=== PATIENT | male | born 1950 | race Caucasian/White ===

== ENCOUNTER → 2021-11-06 13:37 | Outpatient (CLI) | payer OTHER, SELFPAY ==
--- NOTE | 2021-11-06 13:41 | DI.RAD.S_ITS ---
PROCEDURE: XR KUB INDICATIONS: Kidney stone TECHNIQUE: One view of the abdomen acquired. COMPARISON: None. FINDINGS: Surgical changes and devices: Right upper quadrant surgical clips, compatible with cholecystectomy. Bowel: Nonspecific bowel gas pattern. Soft tissues: 7 mm calcific density projecting over the right sacrum, which may reflect a ureteral calculus or phlebolith. Additional pelvic calcifications are seen, compatible with phleboliths. Visualized solid organ contours appear normal in size. Bones: No suspicious bony lesions. Multifocal degenerative change. IMPRESSION: 7 mm right ureteral calculus versus phlebolith. Dictated by: Gustavo Love M.D. on 11/06/2021 at 14:42 Approved by: Gustavo Love M.D. on 11/06/2021 at 14:44
== END ==
PROVIDERS: Referring Provider Urology; Visit Provider Urology
DX: N20.1 Calculus of ureter (principal); N42.9 Disorder of prostate, unspecified; K40.90 Unilateral inguinal hernia, without obstruction or gangrene, not specified as recurrent; N40.1 Benign prostatic hyperplasia with lower urinary tract symptoms; N13.8 Other obstructive and reflux uropathy; Z87.442 Personal history of urinary calculi
CPT/HCPCS: 51798; 74018; 81002; 99214

== ENCOUNTER → 2021-11-15 12:06 | Outpatient (CLI) | payer OTHER, SELFPAY ==
--- NOTE | 2021-11-15 12:14 | DI.RAD.S_ITS ---
PROCEDURE: XR KUB INDICATIONS: ureteral calculus TECHNIQUE: One view of the abdomen acquired. COMPARISON: [facility], , XR KUB, 11/06/2021, 13:35. FINDINGS: Surgical changes and devices: None. Bowel: Nonspecific bowel gas pattern. Soft tissues: Redemonstrated 7 mm calculus projecting over the right sacrum, which may reflect a ureteral calculus versus phleboliths. Visualized solid organ contours appear normal in size. Bones: No suspicious bony lesions. Multifocal degenerative change. IMPRESSION: No significant interval change. Dictated by: Gustavo Love M.D. on 11/15/2021 at 14:26 Approved by: Gustavo Love M.D. on 11/15/2021 at 14:27
[2021-11-15 14:30] LABS: Prostate Specific Antigen Scrn 0.971 ng/mL (0.1-4.0)
== END ==
PROVIDERS: Referring Provider Urology; Visit Provider Urology
DX: Z12.5 Encounter for screening for malignant neoplasm of prostate (principal); N20.1 Calculus of ureter
CPT/HCPCS: 36415; 74018; G0103

== ENCOUNTER → 2021-12-06 15:30 | Outpatient (CLI) | payer OTHER, SELFPAY ==
--- NOTE | 2021-12-06 15:32 | DI.RAD.S_ITS ---
PROCEDURE: XR KUB INDICATIONS: kidney stones TECHNIQUE: One view of the abdomen acquired. COMPARISON: [facility], CR, XR KUB, 11/15/2021, 12:07. [facility], CR, XR KUB, 11/06/2021, 13:35. FINDINGS: Surgical changes and devices: Cholecystectomy clips. Bowel: Bowel gas pattern is normal. Soft tissues: Calcifications in the pelvis are unchanged. No stones in the kidneys identified. No suspicious abdominal calcifications. Bones: No suspicious bony lesions. IMPRESSION: Calcifications in the pelvis are unchanged. These could be due to phleboliths or kidney stones. Recommend further evaluation with CT KUB. Dictated by: Darrel Alfonso M.D. on 12/06/2021 at 16:53 Approved by: Darrel Alfonso M.D. on 12/06/2021 at 16:55
== END ==
PROVIDERS: Referring Provider Urology; Visit Provider Urology
DX: N20.1 Calculus of ureter (principal)
CPT/HCPCS: 74018

== ENCOUNTER → 2021-12-30 15:14 | Outpatient (CLI) | payer OTHER, SELFPAY ==
--- NOTE | 2021-12-30 15:16 | DI.RAD.S_ITS ---
PROCEDURE: XR KUB INDICATIONS: Kidney stone TECHNIQUE: One view of the abdomen acquired. COMPARISON: [facility], , XR KUB, 12/06/2021, 15:22. FINDINGS: Surgical changes and devices: Cholecystectomy clips Bowel: Bowel gas pattern is normal. Soft tissues: No suspicious abdominal calcifications. Visualized solid organ contours appear normal in size. No radiopaque renal calculi are identified on the current films. Multiple pelvic calcifications are noted. Bones: No suspicious bony lesions. IMPRESSION: Unchanged findings. Dictated by: Chi Dahl M.D. on 12/30/2021 at 17:17 Approved by: Chi Dahl M.D. on 12/30/2021 at 17:19
== END ==
PROVIDERS: Referring Provider Urology; Visit Provider Urology
DX: N20.9 Urinary calculus, unspecified (principal); Z87.442 Personal history of urinary calculi
CPT/HCPCS: 74018

== ENCOUNTER → 2022-01-13 14:52 | Outpatient (CLI) | payer OTHER, SELFPAY ==
--- NOTE | 2022-01-13 14:54 | DI.RAD.S_ITS ---
PROCEDURE: XR KUB INDICATIONS: calculus of ureter TECHNIQUE: One view of the abdomen acquired. COMPARISON: [facility], , XR KUB, 12/30/2021, 15:17. FINDINGS: Surgical changes and devices: Cholecystectomy clips are present. Bowel: Bowel gas pattern is normal. Soft tissues: No suspicious abdominal calcifications. Visualized solid organ contours appear normal in size. Calcifications are noted within the pelvis, unchanged compared to prior exam. Bones: No suspicious bony lesions. IMPRESSION: Unchanged pelvic calcifications suspected to be phleboliths, unchanged. Dictated by: Oralia Lux M.D. on 01/13/2022 at 16:17 Approved by: Oralia Lux M.D. on 01/13/2022 at 16:20
== END ==
PROVIDERS: Referring Provider Urology; Visit Provider Urology
DX: N20.1 Calculus of ureter (principal)
CPT/HCPCS: 74018

== ENCOUNTER → 2022-01-22 10:20 | Outpatient (CLI) | payer OTHER, SELFPAY ==
[2022-01-22 10:57] LABS: COVID19 -Nasal RAPID Negative (Negative)
== END ==
PROVIDERS: Visit Provider Urology
DX: Z20.822 Contact with and (suspected) exposure to COVID-19 (principal)
CPT/HCPCS: 87635; C9803

== ENCOUNTER 2022-01-24 11:41 | Day surgery (SDC) | payer OTHER, SELFPAY ==
[2022-01-21 08:18] VITALS: BMI 34.0
--- NOTE | 2022-01-24 | DI.RAD.S_ITS ---
PROCEDURE: XR ABDOMEN 1V INDICATIONS: RIGHT STENT TECHNIQUE: Nondiagnostic intraoperative fluoroscopic image of the right mid abdomen at the level of the kidney. COMPARISON: None. FINDINGS: Nondiagnostic intraoperative fluoroscopic image of the right mid abdomen at the level of the right kidney demonstrates a coiled double-J ureteral stent. IMPRESSION: Right double-J ureteral stent in appropriate position. Dictated by: Yuniel Dumont M.D. on 01/24/2022 at 15:49 Approved by: Yuniel Dumont M.D. on 01/24/2022 at 15:50
[2022-01-24 12:00] VITALS: BP 121/87; PULSE 86; RESP 16; TEMP 36.2; O2SAT 98; BMI 33.9
[2022-01-24] MEDS: LACTATED RINGERS 1,000 ML 42 ML IV (12:17)
--- NOTE | 2022-01-24 13:05 | PM.PREOP ---
Pre-operative Note COVID-19 Result date/Date tested (Pos, Neg/Pending): 01/22/22 Criteria for continued procedure: Delay expected to result in less-positive ultimate med/surg outcome and Non-surgical alternatives not available or appropriate per current SOC Interval Note History & Physical reviewed/Exam performed by Physician: Yes Changes to H&P: No
[2022-01-24] MEDS: CEFAZOLIN 2 GM/20 ML SYRINGE IV (13:50)
--- NOTE | 2022-01-24 14:25 | SUR.OPER ---
Lithotomy on padded OR bed, head on pillow, right arm secured on padded arm board at <90 degrees abduction, left arm tucked. Legs secured in padded yellow fins stirrups.
--- NOTE | 2022-01-24 14:45 | P.OP_ITS ---
Procedure & Clinicians Procedure: Right rigid ureteroscopy with laser lithotripsy, basket extraction of stone fragments and right ureteral stent placement. Same procedure as scheduled: Yes Indications: This 71-year-old male comes for the above procedure having attempted to pass a right ureteral stone. This stone has failed to progress and the see presents for definitive treatment. Surgeon: Bernabe Sheldon Click Yes if Unassisted: Yes Anesthesia Type: General Operative Notes Findings: Findings: Urethral meatus and urethra are normal. Prostate shows moderate obstructive character with a small to median sized median lobe. Ureteral orifices in normal position with clear efflux. Bladder mucosa is normal there is moderate trabeculation. Stone is noted in the distal ureter just below the level of the vessels. It is fragmented and all large fragments were removed. The 7 [place] multilink stent was left in good position in the right collecting system no string was left in place. Closure Type: not applicable Specimen(s): other (Right ureteral stone fragments) Applied: other (7 [place] multi length stent with no string left in the right ureteral collecting system) Estimated Blood Loss (mL): 0 Blood products transfused: none Procedure in detail: Procedure in detail: After informed consent was obtained, the patient was identified, and brought to the operating room where he was placed in a supine position on the table. The patient then had anesthesia induced and maintained. Ensuring an adequate level of anesthesia the patient was transitioned to the lithotomy position where he was prepped, draped, prepared for transurethral procedure. After time-out, prepping draping ensuring an adequate level of anesthesia 21 [place] cystoscope was passed through the urethra prostate into the bladder under direct vision cystoscopy was performed with the 30 and 70 degree lens. The right ureteral orifice was identified and a guidewire passed up and into the collecting system under fluoroscopic visualization. Scope was backed out and this wire was reserved as a safety wire. The scope was reinserted 2nd wire passed up and into the collecting system. The cystoscope was backed out and a is semi rigid ureteral scope was passed in a coaxial fashion over the working wire to the level of the stone. The wire was removed laser fiber was in serted and laser energy delivered to the stone fragmenting it into passable size fragments. Nitinol basket was then inserted and exchanged for the laser fiber after the laser been placed on standby. Hand with the basket the stones were grasped and then dropped within the bladder reinserting the scope into the ureter under direct vision. This was done until all fragments were collected. Again the scope was inserted the ureter visualized from the level of the vessels down and no further fragments were noted. The ureteral scope was then removed. And the wire backloaded through a cystoscope which was then put in place. The stent was passed over the wire in a coaxial fashion position renal pelvis under fluoroscopic visualization in the bladder under direct vision the grasping forceps was inserted and the stent grasped after the wired been removed and the nylon harness was removed. The fragments were then evacuated from the bladder and collected to be sent to pathology for composition analysis. With these things done the bladder was drained the scope was removed and the patient was awakened having tolerated the procedure well. He was then taken to the postanesthesia care unit for recovery to be discharged to home. There Complications: none Post-operative Condition: stable Disposition: PACU Plan for aftercare: Patient to follow-up in my office in approximately 10 days for cystoscopy and likely stent removal after verification of all fragments passed via KUB
[2022-01-24 14:51] VITALS: BP 142/89; PULSE 90; RESP 12; TEMP 36.2; O2SAT 95
[2022-01-24 14:56] VITALS: BP 128/83; PULSE 77; RESP 11; O2SAT 96
[2022-01-24 15:04] VITALS: BP 117/72; PULSE 80; RESP 12; TEMP 36.5; O2SAT 96
[2022-01-24 15:08] VITALS: BP 100/64; PULSE 76; RESP 14; TEMP 36.5; O2SAT 96
[2022-01-24 15:18] VITALS: BP 117/75; PULSE 81; RESP 20; TEMP 36.5; O2SAT 98
[2022-01-29 18:36] LABS: Ca oxalate monohydr 100 % (.); Size 3x3 mm (.)
== END 2022-01-24 15:27 | disposition home or self-care (01) ==
PROVIDERS: Referring Provider Urology; Visit Provider Urology
PROC: (CPT 52356; principal; 2022-01-24 13:15)
DX: N20.1 Calculus of ureter (principal); N40.1 Benign prostatic hyperplasia with lower urinary tract symptoms; N13.8 Other obstructive and reflux uropathy; E11.9 Type 2 diabetes mellitus without complications; Z79.84 Long term (current) use of oral hypoglycemic drugs
CPT/HCPCS: 52356; 74018; 76000; 82365; 82962; J0690; J1100; J2250; J2405; J2704; J3010

== ENCOUNTER → 2022-02-07 16:12 | Outpatient (CLI) | payer OTHER, SELFPAY ==
--- NOTE | 2022-02-07 16:16 | DI.RAD.S_ITS ---
PROCEDURE: XR KUB INDICATIONS: ureter calculus TECHNIQUE: One view of the abdomen acquired. COMPARISON: [facility], , XR KUB, 01/13/2022, 14:43. FINDINGS: Surgical changes and devices: Interval placement of right ureteral stent. Calcific density projecting over the expected course of the distal right ureter is not identified in the current study compatible with interval passage. Multiple pelvic phleboliths are stable compared to prior exam. Bowel: Bowel gas pattern is normal. Soft tissues: No suspicious abdominal calcifications. Visualized solid organ contours appear normal in size. Bones: No suspicious bony lesions. IMPRESSION: Right ureteral stone not identified compatible with interval passage. Dictated by: Nhi Minaya MD, PhD on 02/07/2022 at 17:06 Approved by: Nhi Minaya MD, PhD on 02/07/2022 at 17:07
== END ==
PROVIDERS: Referring Provider Urology; Visit Provider Urology
DX: N20.1 Calculus of ureter (principal)
CPT/HCPCS: 74018

== ENCOUNTER → 2022-03-06 08:29 | Outpatient (CLI) | payer OTHER, SELFPAY ==
[2022-03-06 11:17] LABS: Calcium 9.3 mg/dL (8.4-10.2); Uric Acid 5.9 mg/dL (3.5-8.5)
[2022-03-07 05:47] LABS: Parathyroid Hormone Int 24 pg/mL (15-65)
== END ==
PROVIDERS: Referring Provider Urology; Visit Provider Urology
DX: N20.1 Calculus of ureter (principal)
CPT/HCPCS: 36415; 82310; 83970; 84550

== ENCOUNTER 2023-01-10 15:11 | Emergency (ER) | payer OTHER, SELFPAY ==
[2023-01-10 15:16] VITALS: BP 137/88; PULSE 75; RESP 18; TEMP 36.1; O2SAT 96; BMI 36.8
--- NOTE | 2023-01-10 15:26 | PC.NURSE ---
states the right is slightly blurry.
[2023-01-10 17:42] VITALS: BP 110/75; PULSE 81; O2SAT 96
[2023-01-10] MEDS: FLUORESCEIN 1 MG STRIP EYE-RIGHT (17:43)
--- NOTE | 2023-01-10 17:46 | ED.EYEPROB ---
HPI - Eye Problem <Maude Wong PA-C - Last Filed: 01/10/23 20:20> General Chief complaint: Eye Problems Stated complaint: Aki blurry vison, blood shot, 1h Time Seen by Provider: 01/10/23 17:31 Source: patient Mode of arrival: Family Vehicle History of Present Illness HPI Narrative: This is a 72-year-old male who presents with concern for right eye injury sustained today this afternoon. Patient states he was closing the lid on the barbecue wrapping a bungee cord around it he had put the bungee cord underneath and was pulling it up behind the barbecue to attach it when he lost was hold of it and it snapped back towards him coming underneath the barbecue and swinging up into his right eye. Patient states that the metallic end of the bungee cord hit his eye he is unsure if he closed his eye prior to hitting. He states he immediately had pain and blurry vision although notes that his blurry vision has improved somewhat and he actually feels like he can see pretty normally at this point. He says he is a very mild headache and when the injury happened it caused him to fall backwards and he did land on the deck. He thinks he may have hit his head but did not lose consciousness, his heard him fall and was there immediately. He states he does not wear contacts or glasses, does use reading glasses, he has some pain around his eye does not feel it is worse with moving his eye. He denies double vision, severe headache, persistent blurred vision midline neck pain, numbness or tingling of extremities, loss of consciousness, nausea, vomiting or any other symptoms. Related Data Home Medications Medication Instructions Recorded Confirmed atorvastatin 10 mg tablet 10 mg PO DAILY 11/06/21 10/23/22 metformin 500 mg tablet 1,000 mg PO BID 01/01/22 10/23/22 empagliflozin [Jardiance] PO DAILY 10/23/22 10/23/22 levothyroxine 150 mcg tablet 150 mcg PO DAILY 10/23/22 10/23/22 pembrolizumab [Keytruda] IV .6wks 10/23/22 10/23/22 Previous Rx's Medication Instructions Recorded tamsulosin 0.4 mg capsule 0.8 mg PO BEDTIME #60 caps 11/26/22 obqxgqlu-mixkutukp-bojqidow 3.5 2 drp EYE-RIGHT Q6H corneal 01/10/23 mg/mL-10,000 unit/mL-0.1% eye drops abrasion/eye trauma 6 days #5 mL Allergies Allergy/AdvReac Type Severity Reaction Status Date / Time No Known Drug Allergies Allergy Verified 01/10/23 15:22 Review of Systems <Maude Wong PA-C - Last Filed: 01/10/23 20:20> Review of Systems Narrative: See HPI Patient History <Maude Wong PA-C - Last Filed: 01/10/23 20:20> Medical History BPH with obstruction/lower urinary tract symptoms Calcium oxalate monohydrate kidney stones Diabetes FH: cholecystectomy History of kidney stones HLD (hyperlipidemia) Kidney stones Left inguinal hernia Melanoma Osteoarthritis Right ureteral calculus Surgical History History of knee replacement Hx of cholecystectomy (2011) Social History marital status: household members: spouse Smoking Status: Never smoker alcohol intake: current Type(s) of exercise: walking frequency: daily Smoking Status: Never smoker alcohol intake frequency: a few times a week Substance Use Type: does not use Exam <Maude Wong PA-C - Last Filed: 01/10/23 20:20> Narrative Exam Narrative: GENERAL: 72 year old patient appears stated age. Well-developed patient, in mild distress. HEAD: Atraumatic. Normocephalic. EYES/FACE: Pupils equal round and reactive. Extraocular motions intact. No scleral icterus. No drainage, the right eye is significantly erythematous with subconjunctival hematoma covering the entire scleral area of the right eye with mild edema and swelling between 6:00 p.m. and 9:00 p.m. there is no hyphema noted, pupil is round and reactive. There is mild bluish bruising forming under the patient's eye the medial aspect nasal bones are stable, patient does have some tenderness with palpation of the orbit midline upper, however orbit bones feels stable, zygoma stable After instilling tetracaine, exam of the right eye with fluorescein does reveal a medial corneal abrasion that is mild at approximately the 3 o'clock position that is not over the iris or pupil. Additionally intra-ocular pressures are assessed and found to be equal bilaterally at 7 ENT: Nose without bleeding, purulent drainage. Airway patent. bite is normal NECK: Trachea midline. Non tender. No midline spinous process tenderness deformities or step-offs, patient has normal range of motion of the neck pain-free. CARDIOVASCULAR: Regular rate and rhythm without murmurs, gallops, or rubs. RESPIRATORY: Clear to auscultation. Breath sounds equal bilaterally. No wheezes, rales, or rhonchi. EXTREMITIES: No edema or joint tenderness. BACK: Nontender without deformity or crepitance. No flank tenderness. NEURO: AOx3. SKIN: No rash or erythema of visible areas Initial Vital Signs Initial Vital Signs: Vital Signs Temperature 97 F L 01/10/23 15:16 Pulse Rate 75 01/10/23 15:16 Respiratory Rate 18 01/10/23 15:16 Blood Pressure 137/88 01/10/23 15:16 Pulse Oximetry 96 01/10/23 15:16 Oxygen Delivery Method Room Air 01/10/23 15:16 <Darin Gomez DO - Last Filed: 01/10/23 21:15> Initial Vital Signs Initial Vital Signs: Vital Signs Temperature 97 F L 01/10/23 15:16 Pulse Rate 75 01/10/23 15:16 Respiratory Rate 18 01/10/23 15:16 Blood Pressure 137/88 01/10/23 15:16 Pulse Oximetry 96 01/10/23 15:16 Oxygen Delivery Method Room Air 01/10/23 15:16 Course <Maude Wong PA-C - Last Filed: 01/10/23 20:20> Course Course Narrative: Did perform initial exam on this patient with Dr. Saenz, attending physician present and doing initial exam, after discussion she does order a CT facial bones for further evaluation. Orders Ordered: ED Orders 01/10/23 17:54 CT facial bones wo con Stat 01/10/23 18:14 CT head/brain wo con Stat Discontinued Medications Diphtheria/Tetanus/Acell Pertussis (Tet,Diph,Pertuss(Acell),Vac/Pf 0.5 Ml Syringe) 0.5 ml IM .ONCE ONE Stop: 01/10/23 18:17 Last Admin: 01/10/23 20:16 Dose: Not Given Documented By: Fluorescein Sodium (Fluorescein 1 Mg Strip) 1 mg EYE-RIGHT NOW ONE Stop: 01/10/23 17:37 Last Admin: 01/10/23 17:43 Dose: 1 mg Documented By: SB Proparacaine HCl (Proparacaine 0.5% Ophth Venessa) 1 drops EYE-RIGHT PRN PRN PRN Reason: eye pain Last Admin: 01/10/23 18:33 Dose: 1 drop Documented By: SB Vital Signs Vital signs: Vital Signs - 8 hr 01/10/23 15:16 01/10/23 17:42 01/10/23 20:19 Temperature 97 F L Pulse Rate 75 81 72 Respiratory Rate 18 16 Blood Pressure 137/88 110/75 137/84 Pulse Oximetry 96 96 97 Oxygen Delivery Method Room Air Room Air Room Air <Darin Gomez DO - Last Filed: 01/10/23 21:15> Orders Ordered: ED Orders 01/10/23 17:54 CT facial bones wo con Stat 01/10/23 18:14 CT head/brain wo con Stat Discontinued Medications Diphtheria/Tetanus/Acell Pertussis (Tet,Diph,Pertuss(Acell),Vac/Pf 0.5 Ml Syringe) 0.5 ml IM .ONCE ONE Stop: 01/10/23 18:17 Last Admin: 01/10/23 20:16 Dose: Not Given Documented By: Fluorescein Sodium (Fluorescein 1 Mg Strip) 1 mg EYE-RIGHT NOW ONE Stop: 01/10/23 17:37 Last Admin: 01/10/23 17:43 Dose: 1 mg Documented By: SB Proparacaine HCl (Proparacaine 0.5% Ophth Venessa) 1 drops EYE-RIGHT PRN PRN PRN Reason: eye pain Last Admin: 01/10/23 18:33 Dose: 1 drop Documented By: SB Vital Signs Vital signs: Vital Signs - 8 hr 01/10/23 15:16 01/10/23 17:42 01/10/23 20:19 Temperature 97 F L Pulse Rate 75 81 72 Respiratory Rate 18 16 Blood Pressure 137/88 110/75 137/84 Pulse Oximetry 96 96 97 Oxygen Delivery Method Room Air Room Air Room Air MDM - Eye Problem <Maude Wong PA-C - Last Filed: 01/10/23 20:20> Differential Diagnosis Differential diagnosis: Likely corneal abrasion, subconjunctival hemorrhage, ruptured globe and other (Traumatic injury to eye) Medical Records Attestation: I reviewed the patient's medical records. Imaging Data CT scan - head: My Impression: Agree with Radiology interpretation Radiologist's Impression: [address] [address] [address] Scan Report Signed Patient: Carlos Chavis MR#: [id number] : 1950 Acct:[id number] Age/Sex: 72 / M Date of Service: 01/10/23 Loc: ED Accession Number: [id number] ?? Procedure: CT head/brain wo con Ordering Provider: Maude Wong P.A-C PROCEDURE:? CT HEAD/BRAIN WO CON ? INDICATIONS:? fall, head injury ? TECHNIQUE:? Noncontrast 4.5 mm thick angled axial sections acquired from the foramen magnum to the vertex, with coronal and sagittal reformats.? For radiation dose reduction, the following was used:? automated exposure control, adjustment of mA and/or kV according to patient size.? ? COMPARISON:? None. ? FINDINGS:? Image quality:? Excellent.? ? CSF spaces:? Basal cisterns are patent.? No extra-axial fluid collections.? Ventricles are normal in size and shape.? ? Brain:? No midline shift.? No intracranial masses or hemorrhage.? Torres-white matter interface is normal.? Age-appropriate cerebral cortical volume loss.? Age-appropriate bilateral white matter hypodensities consistent with chronic small vessel ischemic changes. ? Skull and face:? Calvarium and visualized facial bones are intact, without suspicious lesions.? ? Sinuses:? Visualized sinuses and mastoids are clear.? ? IMPRESSION:? ? 1. No CT evidence of acute intracranial trauma. ? 2. No significant soft tissue injury or underlying fracture. ? 3. Age-appropriate cerebral cortical volume loss and chronic microvascular ischemic changes. ? ? ? Dictated by: Alissa Milner M.D. on 01/10/2023 at 19:15 ? ? Approved by: Alissa Milner M.D. on 01/10/2023 at 19:18?? CT facial bones: My Impression: Agree with Radiology interpretation Radiologist's Impression: [address] [address] [address] Scan Report Signed Patient: Carlos Chavis MR#: [id number] : 1950 Acct:[id number] Age/Sex: 72 / M Date of Service: 01/10/23 Loc: ED Accession Number: [id number] ?? Procedure: CT facial bones wo con Ordering Provider: Alysia Saenz D.O. PROCEDURE:? CT FACIAL BONES WO CON ? INDICATIONS:? right eye trauma ? TECHNIQUE:? Noncontrast 2.5 mm thick axial images acquired from the mandible through the frontal sinuses, with coronal and sagittal reformatting.? For radiation dose reduction, the following was used:? automated exposure control, adjustment of mA and/or kV according to patient size.? ? COMPARISON:? None. ? FINDINGS:? Image quality:? Excellent.? ? Bones and teeth:? Impacted and minimally displaced bilateral nasal bone fractures near the tip.? The nasal septum appears intact.? No associated hematoma.? Orbital rims and orbital floors appear intact.? Maxillary sinus jacobson, zygomatic arches, and pterygoid plates appear intact.? No mandibular fracture or TMJ dislocation.? Dentition appears normal with bilateral molar fillings.? Incidental note made degenerative changes at the atlantodental interval. ? Sinuses:? Paranasal sinuses are aerated, without fluid levels, mucosal thickening, or mucoceles.? Frontal sinuses are hypoplastic.? Mastoid air cells are aerated.? ? Soft tissues:? Minor right infraorbital soft tissue swelling.? The globe appears intact.? Retrobulbar soft tissues are symmetric.? No inflammatory changes.? No edema, masses, or fluid collections.? No enlarged lymph nodes.? No soft tissue lacerations or debris.? ? Vascular:? Visualized vascular structures appear normal in the absence of contrast.? Bony vascular foramina and canals are intact.? ? IMPRESSION:? ? 1. Mild right infraorbital soft tissue swelling without underlying fractures. ? 2. Minimally impacted bilateral nasal bone fractures of uncertain chronicity.? Correlate with point of tenderness.? ? ? Dictated by: Alissa Milner M.D. on 01/10/2023 at 19:42 ? ? Approved by: Alissa Milner M.D. on 01/10/2023 at 19:49?? Treatment and disposition Shared decision making:: Shared decision-making was used to determine this patient's plan of care in the emergency department and plan for outpatient follow up. [facility] Narrative Medical decision making narrative: This is a 72-year-old male who presents with concern for right eye pain redness after he was hit in the face by a swinging bungee cord that was under tension. After exam by attending physician and myself CT facial bones is ordered for further evaluation, eye exam including IOP which are equal bilaterally and fluorescein exam is unremarkable with exception of corneal abrasion noted on the medial aspect of the injured right eye. Patient does have a significant global subconjunctival hemorrhage affecting the entire scleral region with some mild edema noted inferolaterally on the affected eye however the pupil is round reactive and do not have concern for ruptured globe. Patient did initially have some mild blurred vision however this was resolving by time of exam and had an unremarkable visual acuity exam today. CT head noncontrast is also obtained in addition to CT facial bones given the patient did hit his head and is 72 years old reports no loss of consciousness and has had no severe headache or vomiting since the event. His C-spine is nontender and he has good active range of motion of the neck. Cervical spine CT is not obtained. Patient's imaging returns unremarkable he does have evidence of a nasal bone fracture bilaterally of unknown age per Radiology and patient does have a history of previous broken nose, his exam today is not consistent with this being a new injury. Patient also receives a prescription for neomycin polymyxin dexamethasone for antibiotic prophylaxis and Tdap is ordered during ED stay however the patient declined this even after discussion. Patient is advised regarding return precautions, follow-up plan discussed, all questions answered. Discharge Plan Departure Patient Disposition: Home Clinical Impression: Right eye trauma, Acute facial pain, Fall, Corneal abrasion, Subconjunctival hematoma Activity Restrictions/Additional Instructions: *You have been diagnosed with [a subconjunctival hemorrhage, corneal abrasion, eye trauma] *What to do: *Please continue to take your regular medications as directed. [X ] New medication prescriptions sent to your pharmacy: [Neomycin polymyxin dexamethasone] [ ] New medication written as a paper prescription [ ] No new medications given *Please follow up with your primary care provider in 2-3 days, call for an appointment. Let them know you were seen in the Emergency Department and that we ask that you be seen in follow up. We will electronically transmit a record of today's note if your PCP is in our system. CT scan today of your head and brain looked okay no evidence of bleeding there, you do have nasal bone fractures bilaterally seen on CT imaging, though this is consistent with your old/previous injury and not from your injury today. And on your eye exam today you did have corneal abrasion, I have prescribed topical eye drops for you with antibiotics in them and a steroid to help reduce inflammation and ensure you do not get infection. We also gave you an updated tetanus today in the emergency department. You can also take Tylenol and ibuprofen as needed for pain. It is very important that you do if you do have new or worsening symptoms such as blurry vision, eye pain, severe headache or other symptoms of concern you immediately seek re-evaluation. *If you do not have a primary care provider please contact the [facility] Resource line at [phone]. They will ask some questions about your medical history and help get you set up with a doctor in the community. *Return to Emergency Department if you should have any new, worsening or concerning symptoms, such as [fever greater than 101 F, shaking chills, worsening pain, persistent vomiting or other bothersome symptoms] Prescriptions: New neomycin-polymyxin B-dexameth 3.5mg/mL-10,000 unit/mL-0.1 % drops,suspension 2 drp EYE-RIGHT Q6H 6 Days Qty: 5 0RF No Action tamsulosin 0.4 mg capsule 0.8 mg PO BEDTIME Qty: 60 12RF atorvastatin 10 mg tablet 10 mg PO DAILY metformin 500 mg tablet 1,000 mg PO BID levothyroxine 150 mcg tablet 150 mcg PO DAILY empagliflozin [Jardiance] PO DAILY pembrolizumab [Keytruda] IV .6wks Stand Alone Forms: Patient Portal/API <Darin Gomez, - Last Filed: 01/10/23 21:15> Cosign ED Attending Cosignature Attestation: Dr Gomez Co-Sign Statement: I was available for consultation during this patient's emergency department visit. This chart is signed by myself for administrative purposes only. I did not have direct contact with this patient during this visit. They were seen independently by the APC.
--- NOTE | 2023-01-10 17:54 | DI.CT.S_ITS ---
PROCEDURE: CT FACIAL BONES WO CON INDICATIONS: right eye trauma TECHNIQUE: Noncontrast 2.5 mm thick axial images acquired from the mandible through the frontal sinuses, with coronal and sagittal reformatting. For radiation dose reduction, the following was used: automated exposure control, adjustment of mA and/or kV according to patient size. COMPARISON: None. FINDINGS: Image quality: Excellent. Bones and teeth: Impacted and minimally displaced bilateral nasal bone fractures near the tip. The nasal septum appears intact. No associated hematoma. Orbital rims and orbital floors appear intact. Maxillary sinus jacobson, zygomatic arches, and pterygoid plates appear intact. No mandibular fracture or TMJ dislocation. Dentition appears normal with bilateral molar fillings. Incidental note made degenerative changes at the atlantodental interval. Sinuses: Paranasal sinuses are aerated, without fluid levels, mucosal thickening, or mucoceles. Frontal sinuses are hypoplastic. Mastoid air cells are aerated. Soft tissues: Minor right infraorbital soft tissue swelling. The globe appears intact. Retrobulbar soft tissues are symmetric. No inflammatory changes. No edema, masses, or fluid collections. No enlarged lymph nodes. No soft tissue lacerations or debris. Vascular: Visualized vascular structures appear normal in the absence of contrast. Bony vascular foramina and canals are intact. IMPRESSION: 1. Mild right infraorbital soft tissue swelling without underlying fractures. 2. Minimally impacted bilateral nasal bone fractures of uncertain chronicity. Correlate with point of tenderness. Dictated by: Alissa Milner M.D. on 01/10/2023 at 19:42 Approved by: Alissa Milner M.D. on 01/10/2023 at 19:49
--- NOTE | 2023-01-10 18:14 | DI.CT.S_ITS ---
PROCEDURE: CT HEAD/BRAIN WO CON INDICATIONS: fall, head injury TECHNIQUE: Noncontrast 4.5 mm thick angled axial sections acquired from the foramen magnum to the vertex, with coronal and sagittal reformats. For radiation dose reduction, the following was used: automated exposure control, adjustment of mA and/or kV according to patient size. COMPARISON: None. FINDINGS: Image quality: Excellent. CSF spaces: Basal cisterns are patent. No extra-axial fluid collections. Ventricles are normal in size and shape. Brain: No midline shift. No intracranial masses or hemorrhage. Torres-white matter interface is normal. Age-appropriate cerebral cortical volume loss. Age-appropriate bilateral white matter hypodensities consistent with chronic small vessel ischemic changes. Skull and face: Calvarium and visualized facial bones are intact, without suspicious lesions. Sinuses: Visualized sinuses and mastoids are clear. IMPRESSION: 1. No CT evidence of acute intracranial trauma. 2. No significant soft tissue injury or underlying fracture. 3. Age-appropriate cerebral cortical volume loss and chronic microvascular ischemic changes. Dictated by: Alissa Milner M.D. on 01/10/2023 at 19:15 Approved by: Alissa Milner M.D. on 01/10/2023 at 19:18
[2023-01-10] MEDS: PROPARACAINE 0.5% OPHTH SOL 1 DROPS EYE-RIGHT (18:33)
[2023-01-10 20:19] VITALS: BP 137/84; PULSE 72; RESP 16; O2SAT 97
== END 2023-01-10 20:20 | disposition home or self-care (01) ==
PROVIDERS: Emergency Provider Student in an Organized Health Care Education/Training Program
DX: S05.01XA Injury of conjunctiva and corneal abrasion without foreign body, right eye, initial encounter (principal); H11.31 Conjunctival hemorrhage, right eye; S09.90XA Unspecified injury of head, initial encounter; W20.8XXA Other cause of strike by thrown, projected or falling object, initial encounter
CPT/HCPCS: 70450; 70486; 99282; 99284

== ENCOUNTER → 2023-04-23 15:40 | Outpatient (CLI) | payer OTHER, SELFPAY ==
--- NOTE | 2023-04-23 15:42 | DI.RAD.S_ITS ---
PROCEDURE: XR KUB INDICATIONS: Kidney stone TECHNIQUE: One view of the abdomen acquired. COMPARISON: [facility], , XR KUB, 02/07/2022, 16:20. FINDINGS: Surgical changes and devices: Cholecystectomy clips. Bowel: Bowel gas pattern is nonspecific with a few scattered air-fluid levels and paucity of bowel gas. Soft tissues: No suspicious abdominal calcifications. Visualized solid organ contours appear normal in size. Bones: No suspicious bony lesions. IMPRESSION: No renal stone by plain film radiograph. Dictated by: Nhi Minaya MD, PhD on 04/23/2023 at 16:41 Approved by: Nhi Minaya MD, PhD on 04/23/2023 at 16:41
== END ==
PROVIDERS: Referring Provider Urology; Visit Provider Urology
DX: Z87.442 Personal history of urinary calculi (principal)
CPT/HCPCS: 74018

== ENCOUNTER → 2023-10-25 11:07 | Outpatient (CLI) | payer MEDICARE, SELFPAY ==
--- NOTE | 2023-10-25 | DI.MRI.S_ITS ---
PROCEDURE: MR SHOULDER RT WO CON INDICATIONS: Pain in right shoulder TECHNIQUE: Noncontrast oblique coronal T2 fast spin echo with fat saturation, oblique sagittal T1 spin echo and T2 fast spin echo with fat saturation, axial T1 spin echo and T2 fast spin echo with fat saturation through the shoulder. COMPARISON: None. FINDINGS: Image quality: Excellent. Rotator cuff: Mild tendinosis of the supraspinatus, without tear. The infraspinatus is unremarkable. The teres minor is unremarkable. Mild tendinosis of the subscapularis with low-grade interstitial tear of the superior fibers. Mild fatty atrophy of the teres minor. Mild atrophy of the subscapularis and the supraspinatus without fatty infiltration. No muscle edema of the rotator cuff musculature. Bones and bursae: Severe degenerative change of the acromioclavicular joint with inferior projecting osteophytes. Type 1 acromion. No os acromiale. Mild subacromial bursitis. No acute fracture. No focal chondral defect. Mild subchondral cystic changes at the greater tuberosity, reactive. Capsule and soft tissues: Diffuse labral degeneration. Tear of the anterior labrum. The extra-articular biceps tendon is not visualized within the bicipital groove, likely torn. The intra-articular biceps tendon is not well visualized either, and may be torn. No significant glenohumeral effusion. Mild subcoracoid bursitis. Mild muscle edema of the posterior deltoid. IMPRESSION: 1. Mild tendinosis of the supraspinatus, without tear. 2. Low-grade tear of the subscapularis. 3. Full-thickness tear of the biceps tendon at the level of the shoulder. 4. Severe degenerative changes of the acromioclavicular joint. 5. Mild muscle edema of the posterior deltoid, nonspecific. Dictated by: Patti Shah M.D. on 10/26/2023 at 10:46 Approved by: Patti Shah M.D. on 10/26/2023 at 10:55
== END ==
PROVIDERS: Referring Provider Orthopaedic Surgery; Visit Provider Orthopaedic Surgery
DX: S46.211A Strain of muscle, fascia and tendon of other parts of biceps, right arm, initial encounter (principal); M75.111 Incomplete rotator cuff tear or rupture of right shoulder, not specified as traumatic; M25.511 Pain in right shoulder
CPT/HCPCS: 73221

== ENCOUNTER → 2023-11-02 09:50 | Outpatient (CLI) | payer MEDICARE, SELFPAY ==
[2023-11-02 10:58] LABS: Add Manual Diff / Slide Review NO; Basophils Absolute Auto 100 /uL (0-100); Basophils Percent Auto 0.6 % (0-2); Eosinophils Absolute Auto 200 /uL (0-450); Eosinophils Percent Auto 1.5 % (2-4); Hematocrit 48.9 % (41-53); Hemoglobin 16.9 g/dL (13.5-17.5); Lymphocytes Absolute Auto 2700 /uL (1100-4500); Lymphocytes Percent Auto 26.3 % (25-40); Mean Corpuscular HGB Conc 34.5 % (30-36); Mean Corpuscular Volume 95.7 fL (80-100); Monocytes Absolute Auto 800 /uL (0-900); Monocytes Percent Auto 7.4 % (3-14); Neutrophils Absolute Auto 6600 /uL (1500-7000); Neutrophils Percent Auto 64.2 % (50-75); Platelet Count 189 X10^3/uL (150-400); Red Blood Cell Count 5.11 X10^6/uL (4.5-5.9); Red Cell Distribution Width 14.3 % (11.6-14.8); White Blood Cell Count 10.3 X10^3/uL (4.5-11.0)
[2023-11-02 11:07] LABS: Hemoglobin A1C% w Est Avg Glu 8.1 % (4.0-6.0)
[2023-11-02 11:26] LABS: Blood Urea Nitrogen 26 mg/dL (9-20); Carbon Dioxide 30 mmol/L (22-32); Chloride 104 mmol/L (98-107); HEMOLYSIS < 15 (0-50); Potassium 4.3 mmol/L (3.4-5.1); Sodium 139 mmol/L (137-145)
[2023-11-02 11:27] LABS: Alanine Aminotransferase 22 IU/L (<50); Albumin 4.6 g/dL (3.5-5.0); Albumin Globulin Ratio 1.5 (1.0-2.8); Alkaline Phosphatase 74 U/L (38-126); Aspartate Aminotransferase 20 IU/L (17-59); BUN Creatinine Ratio 26.3 (6-22); Bilirubin Total 1.2 mg/dL (0.2-1.3); Calcium 9.5 mg/dL (8.4-10.2); Cholesterol 183 mg/dL (140-199); Estimated Glomerular Filt Rate > 60 mL/min (>60); Globulin 3.1 g/dL (1.7-4.1); Glucose 168 mg/dL (80-110); HDL Cholesterol 65 mg/dL (40-60); LDL Cholesterol Calculated 89 mg/dL (<100); Total Protein 7.7 g/dL (6.3-8.2); Triglycerides 145 mg/dL (35-150)
[2023-11-02 11:34] LABS: Free T4, Direct Thyroxine 1.61 ng/dL (0.78-2.19)
[2023-11-02 11:48] LABS: Thyroid Stimulating Hormone 3.51 uIU/mL (0.47-4.68)
[2023-11-02 11:51] LABS: Prostate Specific Antigen Scrn 0.937 ng/mL (0.1-4.0)
== END ==
PROVIDERS: PCP Family Medicine; Referring Provider Family Medicine; Visit Provider Family Medicine
DX: Z12.5 Encounter for screening for malignant neoplasm of prostate (principal); N13.8 Other obstructive and reflux uropathy; E11.9 Type 2 diabetes mellitus without complications; N40.1 Benign prostatic hyperplasia with lower urinary tract symptoms; E03.9 Hypothyroidism, unspecified
CPT/HCPCS: 36415; 80053; 80061; 83036; 84439; 84443; 85025; G0103

== ENCOUNTER → 2023-12-09 09:03 | Outpatient (CLI) | payer MEDICARE, SELFPAY ==
[2023-12-09 11:24] LABS: Prostate Specific Antigen Scrn 0.835 ng/mL (0.1-4.0)
== END ==
PROVIDERS: PCP Family Medicine; Referring Provider Urology; Visit Provider Urology
DX: Z12.5 Encounter for screening for malignant neoplasm of prostate (principal)
CPT/HCPCS: 36415; G0103

== ENCOUNTER 2023-12-22 08:19 | Day surgery (SDC) | payer MEDICARE, SELFPAY ==
[2023-12-21 07:51] VITALS: BMI 36.6
[2023-12-22] VITALS (9 sets, daily range): BP systolic 99–121; BP diastolic 55–78; PULSE 54–85; RESP 12–20; TEMP 36.1–36.4; O2SAT 92–95; BMI 36.6
--- NOTE | 2023-12-22 | PATH_ITS ---
[facility] Accession Number: [id number] No. of containers..01 Tissue . 01 Material submitted: . prostate - PROSTATE CHIPS . 01 Diagnosis: A. PROSTATE, CHIPS: Benign prostatic stroma with benign epithelium. [facility] 12/28/2023 1008 Local . 01 Electronically signed: . Anahy Serrano MD, Pathologist NPI- [id number] . 01 Gross description: . Received in formalin with two patient identifiers and prostate chips, are brennan soft tissue fragments admixed with a majority hemorrhagic material weighing 13 grams and aggregating to 5.2 x 4.2 x 1.3 cm. No lesions are identified. The brennan soft tissue fragments along with some of the hemorrhagic material are submitted in A1-A3. ([id number]) /MRV 12/23/20239 Local . 01 Pathologist provided ICD-10: N42.9 . 01 CPT . 108415 Specimen Comment: A courtesy copy of this report has been sent to [phone] Performed at: [address] [address], [place], [place] [id number] MD Nirav Clements MD Phone: [phone]
[2023-12-22] MEDS: LACTATED RINGERS 1,000 ML 42 ML IV ×2 (08:33→11:34)
[2023-12-22] MEDS: ACETAMINOPHEN 325 MG TABLET 975 MG PO (08:33)
--- NOTE | 2023-12-22 09:50 | PM.PREOP ---
Pre-operative Note COVID-19 COVID-19 status: Not tested Interval Note History & Physical reviewed/Exam performed by Physician: Yes Changes to H&P: No
[2023-12-22] MEDS: CEFAZOLIN 2 GM/100 ML PREMIX 100 ML IV (10:27)
--- NOTE | 2023-12-22 10:45 | SUR.OPER ---
Lithotomy on padded OR bed, head on pillow, arms secured on padded arm boards at <90 degrees abduction. Legs secured in padded yellow fins stirrups. Gel pad behind right shoulder blade.
--- NOTE | 2023-12-22 11:54 | PM.OP.1 ---
Procedure & Clinicians Procedure: 1. Aquablation water jet resection of prostate 2. Transrectal ultrasound of prostate 3. Transurethral resection of prostate bladder neck with fulguration Same procedure as scheduled: Yes Indications: This 73-year-old male presented with worsening benign prostatic hyperplasia lower urinary tract symptoms on maximal medical therapy. He was interested in Aquablation underwent workup which revealed him to be an ideal candidate. Patient had initial national prostate symptom score of 24 with a bothersome index of 5. His PSA was found to be 0.835 so no worries about cancer. His prostate volume was 68.69 mL. Patient had an average uroflow of 10 mL/sec. He did have a max flow of 16.9 but this was a spike and achieved with Valsalva. Patient's postvoid residual was 140 mL. Cystoscopy revealed him to have trilobar obstruction with a small to moderate-sized median lobe not particularly protruding into the bladder but obstructing the bladder outlet. Ureteral orifices in normal position with clear efflux and no other abnormality within the bladder being an ideal candidate he presents at this time for Aquablation as noted above. Surgeon: Bernabe Sheldon Click Yes if Unassisted: Yes Anesthesia Type: General Operative Notes Findings: Urethral meatus is normal and the urethra is normal along its length with normal mucosa. The sphincter as well coapted prostate exhibits trilobar marked obstructive character. With the median lobe that is obstructive but not particularly bulging into the bladder. Ureteral orifices in normal position with clear efflux there trabeculation cellules but no other abnormality within the bladder. At the end of the procedure the prostatic fossa was widely patent hemostasis was good and a 24 American 30 cc three-way hematuria catheter was left in place with 45 cc in the balloon. At the end of the procedure the ureteral orifices were unaffected and with clear efflux. There were no other changes within the bladder and all prostate chips were evacuated. There were no other abnormalities noted. The truss in 2 catheter in time was 57 minutes the Aquablation resection time was 5 minutes 57 seconds. Closure Type: not applicable Specimen(s): other (Prostate chips) Prosthetic devices, grafts, tissues, transplants, or devices: [address] hematuria catheter with 45 cc in the balloon. Estimated Blood Loss (mL): 100 Blood products transfused: none Procedure in detail: Procedure in detail: After informed consent was obtained, the patient was identified brought to the operating room where he was placed in the supine position on the table and anesthesia was induced and maintained. Ensuring an adequate level of anesthesia patient was transitioned to the lithotomy position where he was prepped after time-out, ensuring an adequate level of anesthesia, administration of antibiotics and appropriate positioning. With the prep and the above done the ultrasound probe was inserted in the following fashion. With the ultrasound probe mounted to the trust stepper which was attached to the articulating arm which was attached to the bed the ultrasound probe was inserted in the rectum after instillation of 60 cc of ultrasound gel. The ultrasound probe was then aligned and confirmation made that the prostate was centered and aligned in both the transverse and longitudinal views. Adjustments were made as needed. With the ultrasound in appropriate position the patient was then draped in a sterile fashion. With this accomplished the 24 American aqua beam handpiece was then put in place in the following fashion. The handpiece was inserted under direct vision through the urethra prostate and into the bladder where cystoscopy was performed. As it was inserted the level of the external sphincter and verumontanum and bladder neck were all noted on the ultrasound. The external sphincter and verumontanum position was again secured in reserve. With the aqua beam handpiece in place it was secured to the handpiece articulating arm which was attached to the bed. The aqua beam handpiece and ultrasound probe were confirmed to be parallel and colinear. Confirmation that the aqua beam nozzle was centered and anterior to the bladder neck and median lobe was done. The cystoscope was then retracted to the level of the verumontanum and external sphincter and the cystoscope was position just proximal to the external sphincter. Reconfirmed alignment of the ultrasound probe and aqua beam handpiece was once again done with compression applied via the ultrasound probe. Horizontal alignment of the water jet was then confirmed and adjustments to made so that it was at the 3 and 9:00 a.m. in appropriate position. With these maneuvers performed the treatment depth and radial angles of resection were defined at the largest portion of the prostate in the transverse view. With this done and in the longitudinal view the treatment contours including the treatment start bladder neck mid prostate and end of resection at the cystoscope tip and treatment profile were all programmed in. This was done after the nozzle and cystoscope length of his excursion was registered with the software. Again this was done in the longitudinal view. The contours were then adjusted to resect the appropriate mount of the prostate. With the treatment plan in place and confirmed the Aquablation treatment was started in the 1st pass completed without incident. The 2nd pass was then again program-adjusting the contours to ensure appropriate resection of the prostate again with these programmed in treatment was begun and the 2nd pass was completed without difficulty. The scope was then undocked from the articulating arm and the hand piece looked out under direct vision. At this point a continuous flow resectoscope was inserted through the urethra prostate and into the bladder under direct vision and ultrasound guidance. With this in place Ellik evacuator was employed to irrigate the bladder evacuate clot. The resecting loop was then inserted the ureteral orifices identified and found to be unaffected with clear efflux. And then the bladder neck was resected from the proximally to to 3 o'clock position to the 9 to 10 o'clock position. Points of bleeding being controlled with the electrocautery. Anteriorly there was some oozing instituted by vibration of the scope which was controlled with electrocautery. At the apex there was a small amount of tissue posteriorly that was a bulging into the midline that was resected points of bleeding again were controlled with the electrocautery. With this phase done the working element was removed the Ellik evacuator was then employed to evacuate the chips and clot. The scope was reinserted and another points of bleeding were controlled with the electrocautery at this point hemostasis appeared to be good the bladder was left full all prostate chips had been evacuated the scope was removed and the patient had a vigorous stream. The 24 American catheter was then passed easily into the bladder with the aid of a catheter guide and under ultrasound guidance. With the catheter in the bladder the balloon was filled with 45 cc of sterile water and placed to gravity drainage. Continuous bladder irrigation was then hooked up and started the bladder was hand irrigated the effluent was clear to light pink and the catheter was secured to the patient's leg with little or no traction. The patient was awakened having tolerated the procedure well to be transferred to the postanesthesia care unit with a continuous bladder irrigation in place there were no complications. Complications: none Post-operative Condition: stable Disposition: PACU Plan for aftercare: Patient will be observed in the postanesthesia care unit continuous bladder irrigation will be weaned off and if possible the patient will be discharged home today if necessary and safe the patient will be held overnight and likely discharged in the morning.
[2023-12-22] MEDS: OXYCODONE IR 5 MG TABLET PO (12:32)
== END 2023-12-22 14:57 | disposition home or self-care (01) ==
PROVIDERS: PCP Family Medicine; Referring Provider Urology; Visit Provider Urology
PROC: 0VT08ZZ Resection of Prostate, Via Natural or Artificial Opening Endoscopic (ICD-10-PCS; CPT 0421T; principal; 2023-12-22 09:45)
DX: N40.1 Benign prostatic hyperplasia with lower urinary tract symptoms (principal); N13.8 Other obstructive and reflux uropathy
CPT/HCPCS: 0421T; 82962; C2596; J0330; J0690; J2405; J2704; J3010

== ENCOUNTER → 2023-12-24 15:49 | Outpatient (CLI) | payer MEDICARE, SELFPAY | PROVIDERS: PCP Family Medicine; Visit Provider Urology | DX: K40.90 Unilateral inguinal hernia, without obstruction or gangrene, not specified as recurrent (principal); R39.198 Other difficulties with micturition; R39.9 Unspecified symptoms and signs involving the genitourinary system | CPT/HCPCS: 81002; 87086 ==

== ENCOUNTER → 2024-01-20 08:13 | Outpatient (CLI) | payer MEDICARE, SELFPAY | PROVIDERS: PCP Family Medicine; Visit Provider Urology | DX: N40.1 Benign prostatic hyperplasia with lower urinary tract symptoms (principal); N13.8 Other obstructive and reflux uropathy; R39.198 Other difficulties with micturition; R33.9 Retention of urine, unspecified; R35.1 Nocturia | CPT/HCPCS: 51798; 81002; 87086 ==

== ENCOUNTER → 2024-02-18 08:26 | Outpatient (CLI) | payer MEDICARE, SELFPAY | PROVIDERS: PCP Family Medicine; Referring Provider Urology; Visit Provider Urology | DX: N40.1 Benign prostatic hyperplasia with lower urinary tract symptoms (principal); N13.8 Other obstructive and reflux uropathy | CPT/HCPCS: 87086 ==

== ENCOUNTER → 2024-04-06 15:53 | Outpatient (CLI) | payer MEDICARE, SELFPAY ==
[2024-04-06 17:02] LABS: Creatinine Urine Random 73.24 mg/dL
[2024-04-06 17:06] LABS: Microalbumin Urine Random 2.5 mg/dL (0-1.6)
[2024-04-06 17:50] LABS: Alanine Aminotransferase 22 IU/L (<50); Albumin 4.3 g/dL (3.5-5.0); Albumin Globulin Ratio 1.3 (1.0-2.8); Alkaline Phosphatase 80 U/L (38-126); Aspartate Aminotransferase 23 IU/L (17-59); BUN Creatinine Ratio 18.9 (6-22); Bilirubin Total 0.6 mg/dL (0.2-1.3); Blood Urea Nitrogen 21 mg/dL (9-20); Calcium 9.4 mg/dL (8.4-10.2); Carbon Dioxide 29 mmol/L (22-32); Chloride 104 mmol/L (98-107); Estimated Glomerular Filt Rate > 60 mL/min (>60); Globulin 3.2 g/dL (1.7-4.1); Glucose 155 mg/dL (80-110); HEMOLYSIS < 15 (0-50); Potassium 3.7 mmol/L (3.4-5.1); Sodium 140 mmol/L (137-145); Total Protein 7.5 g/dL (6.3-8.2)
[2024-04-06 20:14] LABS: Hemoglobin A1C% w Est Avg Glu 6.8 % (4.0-6.0)
[2024-04-06 21:52] LABS: Free T4, Direct Thyroxine 1.44 ng/dL (0.78-2.19)
[2024-04-06 22:06] LABS: Thyroid Stimulating Hormone 3.15 uIU/mL (0.47-4.68)
== END ==
PROVIDERS: PCP Family Medicine; Referring Provider Family Medicine; Visit Provider Family Medicine
DX: E11.9 Type 2 diabetes mellitus without complications (principal); E78.5 Hyperlipidemia, unspecified; E03.9 Hypothyroidism, unspecified
CPT/HCPCS: 36415; 80053; 82043; 82570; 83036; 84439; 84443

== ENCOUNTER → 2024-11-15 07:16 | Outpatient (CLI) | payer MEDICARE, SELFPAY ==
[2024-11-15 08:37] LABS: Hemoglobin A1C% w Est Avg Glu 8.1 % (4.0-6.0)
[2024-11-15 08:40] LABS: Alanine Aminotransferase 25 IU/L (<50); Albumin 4.3 g/dL (3.5-5.0); Albumin Globulin Ratio 1.4 (1.0-2.8); Alkaline Phosphatase 90 U/L (38-126); Aspartate Aminotransferase 29 IU/L (17-59); BUN Creatinine Ratio 22.4 (6-22); Bilirubin Total 1.2 mg/dL (0.2-1.3); Blood Urea Nitrogen 22 mg/dL (9-20); Calcium 9.1 mg/dL (8.4-10.2); Carbon Dioxide 24 mmol/L (22-32); Chloride 104 mmol/L (98-107); Cholesterol 199 mg/dL (140-199); Estimated Glomerular Filt Rate > 60 mL/min (>60); Glucose 183 mg/dL (70-99); HDL Cholesterol 51 mg/dL (40-60); HEMOLYSIS < 15 (0-50); LDL Cholesterol Calculated 109 mg/dL (<100); Potassium 4.2 mmol/L (3.4-5.1); Sodium 138 mmol/L (137-145); Total Protein 7.3 g/dL (6.3-8.2); Triglycerides 193 mg/dL (35-150)
[2024-11-15 08:56] LABS: Free T4, Direct Thyroxine 1.46 ng/dL (0.78-2.19)
[2024-11-15 09:10] LABS: Thyroid Stimulating Hormone 4.59 uIU/mL (0.47-4.68)
[2024-11-15 09:32] LABS: Creatinine Urine Random 55.31 mg/dL
[2024-11-15 09:37] LABS: Microalbumin Urine Random 0.6 mg/dL (0-1.6)
== END ==
LOC: LAB 07:17
PROVIDERS: PCP Family Medicine; Referring Provider Family Medicine; Visit Provider Family Medicine
DX: E11.9 Type 2 diabetes mellitus without complications (principal); E03.9 Hypothyroidism, unspecified; E78.5 Hyperlipidemia, unspecified
CPT/HCPCS: 36415; 80053; 80061; 82043; 82570; 83036; 84439; 84443

== ENCOUNTER → 2025-05-12 07:01 | Outpatient (CLI) | payer MEDICARE, SELFPAY ==
[2025-05-12 07:51] LABS: Add Manual Diff / Slide Review NO; Hematocrit 49.0 % (41-53); Hemoglobin 16.6 g/dL (13.5-17.5); Lymphocytes Absolute Auto 2800 /uL (1100-4500); Mean Corpuscular HGB Conc 33.8 % (30-36); Mean Corpuscular Hemoglobin 32.6 PG (26-34); Mean Corpuscular Volume 96.5 fL (80-100); Platelet Count 169 X10^3/uL (150-400)
[2025-05-12 08:01] LABS: Hemoglobin A1C% w Est Avg Glu 6.0 % (4.0-6.0)
[2025-05-12 08:26] LABS: Alanine Aminotransferase 17 IU/L (<50); Albumin 4.1 g/dL (3.5-5.0); Albumin Globulin Ratio 1.5 (1.0-2.8); Alkaline Phosphatase 76 U/L (38-126); Blood Urea Nitrogen 20 mg/dL (9-20); Calcium 9.1 mg/dL (8.4-10.2); Carbon Dioxide 25 mmol/L (22-32); Chloride 105 mmol/L (98-107); Cholesterol 105 mg/dL (140-199); Estimated Glomerular Filt Rate > 60 mL/min (>60); Globulin 2.8 g/dL (1.7-4.1); Glucose 119 mg/dL (70-99); HDL Cholesterol 56 mg/dL (40-60); HEMOLYSIS < 15 (0-50); Potassium 4.2 mmol/L (3.4-5.1); Sodium 139 mmol/L (137-145); Total Protein 6.9 g/dL (6.3-8.2); Triglycerides 89 mg/dL (35-150)
[2025-05-12 08:49] LABS: Free T4, Direct Thyroxine 1.83 ng/dL (0.78-2.19)
[2025-05-12 09:03] LABS: Thyroid Stimulating Hormone 5.46 uIU/mL (0.47-4.68)
== END ==
PROVIDERS: PCP Family Medicine; Referring Provider Family Medicine; Visit Provider Family Medicine
DX: I10 Essential (primary) hypertension (principal); E11.9 Type 2 diabetes mellitus without complications; E03.2 Hypothyroidism due to medicaments and other exogenous substances; E78.00 Pure hypercholesterolemia, unspecified
CPT/HCPCS: 36415; 80053; 80061; 83036; 84439; 84443; 85025